=== PATIENT | female | born 1955 | race Two or more races ===

== ENCOUNTER 2022-11-01 05:28 | Day surgery (SDC) | payer OTHER | END 2022-11-01 09:30 | disposition home or self-care (01) | LOC: AMB-ENDOS 05:28 | PROVIDERS: ATTEND Surgery | DX: D12.7 Benign neoplasm of rectosigmoid junction (principal); D37.4 Neoplasm of uncertain behavior of colon; K57.30 Diverticulosis of large intestine without perforation or abscess without bleeding; Z20.822 Contact with and (suspected) exposure to COVID-19; K64.8 Other hemorrhoids; K62.82 Dysplasia of anus; Z88.0 Allergy status to penicillin; Z88.2 Allergy status to sulfonamides ==

== ENCOUNTER 2023-01-02 06:25 | Day surgery (SDC) | payer OTHER ==
[2022-12-30 13:15] LABS: URINE APPEARANCE Clear; URINE BILIRRUBIN Negative (NEGATIVE); URINE COLOR Yellow; URINE LEUKOCYTE Small; URINE NITRATE Negative; URINE PROTEIN Trace (NEGATIVE); URINE UROBILINOGEN 0.2 E.U./dl
[2022-12-30 13:19] LABS: URINE BACTERIA 51.6 uL (0.0-1933); URINE EPITHELIAL CELLS 11.2 uL (0.0-38.8); URINE RBC 10.9 uL (0.0-20.8); URINE WBC 36.1 uL (0.0-23.2)
[2022-12-30 13:34] LABS: ALBUMIN 3.3 gm/dL (3.4-5.0); BILIRUBIN TOTAL 0.39 mg/dL (0.3-1.2); CALCIUM 8.7 mg/dL (8.5-10.1); CREATININE SERUM 0.74 mg/dL (0.55-1.02); GFR 78.28; GLOBULINA 3.6 G/DL (2.4-3.5); POTASSIUM 4.3 mEq/L (3.5-5.1); TOTAL PROTEIN 6.9 gm/dL (6.4-8.2)
[2022-12-30 13:36] LABS: INR 1.04; PARTIAL THROMBOPLASTIN TIME 24.5 SECONDS (22.0-34.0); PROTHROMBIN TIME 10.9 SECONDS (9.0-11.5)
[2022-12-30 13:40] LABS: URINE GLUCOSE 100 MG/DL (NEGATIVE)
[2022-12-30 13:41] LABS: URINE BLOOD TRACES
[~2023-01-02] VITALS: Ht 165.1 cm; Wt 85.3 kg
[~2023-01-02 06:25] MED LIST: ACID REDUCER20 M1 PO; ACTOS30 MG PO; ENALAPRIL MALEA10 MG PO; GLIPIZIDE XL10 MG PO; INDAPAMIDE2.5 MG PO; JANUMET 50-5001 EACH PO; PEPCID AC20 MG PO; ZOCOR20 MG PO
[2023-01-02] MEDS ORDERED: TRAMADOL HCL50 MG PO (13:23)
== END 2023-01-02 15:00 | disposition home or self-care (01) ==
LOC: CIR.AMB 06:25
PROVIDERS: ATTEND Surgery
DX: C20 Malignant neoplasm of rectum (principal); K62.89 Other specified diseases of anus and rectum; I10 Essential (primary) hypertension; Z20.822 Contact with and (suspected) exposure to COVID-19; Z88.0 Allergy status to penicillin; Z88.2 Allergy status to sulfonamides; Z88.1 Allergy status to other antibiotic agents

== ENCOUNTER 2024-05-10 12:09 | Inpatient (IN) | payer OTHER ==
[~2024-05-10] VITALS: Ht 91.4 cm; Wt 92.5 kg
[~2024-05-10 12:09] MED LIST changes: +TRAMADOL HCL50 MG PO
[2024-05-12 08:17] VITALS: BP 155/64; O2SAT 100
[2024-05-12] MEDS ORDERED: FAMOTIDINE/PF 20 MG/2 ML VIAL IV SCH (09:00)
[2024-05-12] MEDS ORDERED: RINGERS SOLUTION,LACTATED 1,000 ML IV SCH (09:00)
[2024-05-12] MEDS ORDERED: ENALAPRIL MALEATE 10 MG TABLET PO SCH (09:00)
[2024-05-12] MEDS ORDERED: FUROsemide 20 MG/2 ML VIAL IV SCH (09:15)
[2024-05-12] MEDS ORDERED: ONDANSETRON HCL 2 MG/ML VIAL IV PRN (14:15)
[2024-05-12 16:00] VITALS: BP 147/68; O2SAT 99
[2024-05-12] MEDS ORDERED: HYOSCYAMINE SULFATE 0.125 MG TAB.SUBL SL SCH (17:00)
[2024-05-13] VITALS: BP 152/73; O2SAT 100
[2024-05-13] MEDS ORDERED: INSULIN LISPRO 1,000 UNIT/10 ML UNITS SUBCUTANEO PRN (10:00)
[2024-05-13] MEDS ORDERED: DEXTROSE 50 % IN WATER 0.5 G/ML DISP.SYRIN IV PRN (10:00)
[2024-05-13 10:13] VITALS: BP 135/69; O2SAT 97
[2024-05-13] MEDS ORDERED: POLYETHYLENE GLYCOL 3350 238 GM POWDER PO NR (13:00)
[2024-05-13] MEDS ORDERED: BISACODYL 5 MG TABLET.EC PO SCH (16:00)
[2024-05-13 16:31] VITALS: BP 151/80; O2SAT 99
[2024-05-13 16:39] VITALS: BP 151/80; O2SAT 99
[2024-05-13] MEDS ORDERED: ENOXAPARIN SODIUM 40 MG/0.4 ML SYRINGE SUBCUTANEO SCH (17:00)
[2024-05-14] VITALS: BP 138/75; O2SAT 100
[2024-05-14 03:40] LABS: HEMATOCRIT 37.9 % (36.0-45.00); HEMOGLOBIN 13.3 g/dL (12.0-15.00); MEAN CELL VOLUME 88.9 fL (80.00-100.00); MEAN CORPUSCULAR HEMOGLOBIN 31.1 pg (27.00-32.0); PLATELET COUNT 151 K/uL (150-450); RED BLOOD COUNT 4.27 M/uL (4.00-6.00); RED CELL DISTRIBUTION WIDTH 17.1 % (11.5-14.5)
[2024-05-14] MEDS ORDERED: BUPIVACAINE HCL/MPF 0.5% 30ML VIAL ONE (08:10)
[2024-05-14] MEDS ORDERED: LIDOCAINE HCL 1%/EPINEPHRINE 20ML VIAL IJ ONE (08:10)
[2024-05-14] MEDS ORDERED: SUGAMMADEX SODIUM 200 MG/2 ML VIAL IV ONE (11:52)
[2024-05-14] MEDS ORDERED: OxyCODONE HCL 5 MG TABLET (ROXICODONE) PO PRN (13:00)
[2024-05-14] MEDS ORDERED: MORPHINE SULFATE 4 MG/ML CARTRIDGE IV PRN (13:00)
[2024-05-14] MEDS ORDERED: MORPHINE SULFATE 4 MG/ML VIAL IV ONE ×2 (13:45→14:15)
[2024-05-14] MEDS ORDERED: LACTOBACILLUS ACIDOPHILUS 1 CAP CAP PO NR (14:00)
[2024-05-14] MEDS ORDERED: INSULIN LISPRO 1,000 UNIT/10 ML UNITS SUBCUTANEO ONE (14:10)
[2024-05-14 14:54] VITALS: BP 127/67; O2SAT 99
[2024-05-14 17:00] VITALS: BP 146/64; O2SAT 100
[2024-05-14] MEDS ORDERED: TAMSULOSIN HCL 0.4 MG CAP PO SCH (17:00)
[2024-05-14] MEDS ORDERED: METRONIDAZOLE/SODIUM CHLORIDE 500 MG/100 ML PIGGYBACK IV SCH (17:00)
[2024-05-14] MEDS ORDERED: GABAPENTIN 300 MG CAPSULE PO SCH (17:00)
[2024-05-14] MEDS ORDERED: ACETAMINOPHEN 500 MG GEL..CAP PO SCH (18:00)
[2024-05-14] MEDS ORDERED: CIPROFLOXACIN IN 5 % DEXTROSE 400 MG/200 ML PIGGYBAG IV SCH (21:00)
[2024-05-15 02:14] VITALS: BP 152/69; O2SAT 97
[2024-05-15 07:54] LABS: ALBUMIN 2.7 gm/dL (3.4-5.0); CALCIUM 8.4 mg/dL (8.5-10.1); CREATININE SERUM 0.87 mg/dL (0.55-1.02); GFR 64.75; HEMATOCRIT 37.5 % (36.0-45.00); HEMOGLOBIN 12.5 g/dL (12.0-15.00); MAGNESIUM 1.9 mg/dL (1.8-2.4); MEAN CELL VOLUME 91.6 fL (80.00-100.00); MEAN CORPUSCULAR HEMOGLOBIN 30.4 pg (27.00-32.0); MEAN CORPUSCULAR HGB CONC 33.2 g/dl (32.0-36.0); PHOSPHOROUS 4.2 mg/dL (2.5-4.9); PLATELET COUNT 144 K/uL (150-450); POTASSIUM 4.22 mEq/L (3.5-5.1); RED BLOOD COUNT 4.09 M/uL (4.00-6.00); RED CELL DISTRIBUTION WIDTH 16.9 % (11.5-14.5)
[2024-05-15] MEDS ORDERED: LACTOBACILLUS ACIDOPHILUS 1 CAP CAP PO SCH (09:00)
[2024-05-15 10:08] VITALS: BP 136/68; O2SAT 97
[2024-05-15 17:00] VITALS: BP 112/61; O2SAT 93
[2024-05-15] MEDS ORDERED: SIMVASTATIN 40 MG TABLET PO SCH (17:00)
[2024-05-15 18:16] VITALS: O2SAT 97
[2024-05-15 20:00] VITALS: BP 115/61; O2SAT 95
[2024-05-16 00:20] VITALS: BP 84/46; O2SAT 97
[2024-05-16 02:19] VITALS: BP 108/58; O2SAT 99
[2024-05-16 08:00] VITALS: BP 119/56; O2SAT 98
[2024-05-16 13:47] VITALS: BP 150/60
[2024-05-16 17:23] VITALS: BP 103/60; O2SAT 98
[2024-05-16] MEDS ORDERED: LOPERAMIDE HCL 2 MG CAPSULE PO STA (21:49)
[2024-05-16] MEDS ORDERED: CHOLESTYRAMINE/ASPARTAME LIGHT 4 G/PKT PACKET PO ONE (22:00)
[2024-05-16 23:56] VITALS: BP 105/58; O2SAT 98
[2024-05-17 06:55] LABS: HEMATOCRIT 34.5 % (36.0-45.00); HEMOGLOBIN 11.4 g/dL (12.0-15.00); MEAN CELL VOLUME 91.7 fL (80.00-100.00); MEAN CORPUSCULAR HEMOGLOBIN 30.4 pg (27.00-32.0); MEAN CORPUSCULAR HGB CONC 33.1 g/dl (32.0-36.0); RED BLOOD COUNT 3.76 M/uL (4.00-6.00); RED CELL DISTRIBUTION WIDTH 16.3 % (11.5-14.5)
[2024-05-17 07:04] LABS: PLATELET COUNT 120 K/uL (150-450)
[2024-05-17 07:50] LABS: ALBUMIN 2.2 gm/dL (3.4-5.0); BILIRUBIN TOTAL 0.47 mg/dL (0.3-1.2); CREATININE SERUM 1.13 mg/dL (0.55-1.02); GFR 47.88; GLOBULINA 3.2 G/DL (2.4-3.5); POTASSIUM 3.93 mEq/L (3.5-5.1); TOTAL PROTEIN 5.4 gm/dL (6.4-8.2)
[2024-05-17 08:00] VITALS: BP 127/69; O2SAT 96
[2024-05-17] MEDS ORDERED: hydrALAZINE HCL 20 MG VIAL IV PRN (08:00)
[2024-05-17] MEDS ORDERED: LOPERAMIDE HCL 2 MG CAPSULE PO SCH (09:00)
[2024-05-17] MEDS ORDERED: 0.9 % SODIUM CHLORIDE 1,000 ML IV SCH (11:30)
[2024-05-17 16:00] VITALS: BP 117/62; O2SAT 100
[2024-05-17 20:56] VITALS: BP 113/62; O2SAT 99
[2024-05-18 00:42] VITALS: BP 111/62; O2SAT 95
[2024-05-18 07:12] LABS: HEMATOCRIT 30.5 % (36.0-45.00); HEMOGLOBIN 10.5 g/dL (12.0-15.00); MEAN CELL VOLUME 90.3 fL (80.00-100.00); MEAN CORPUSCULAR HEMOGLOBIN 31.2 pg (27.00-32.0); MEAN CORPUSCULAR HGB CONC 34.5 g/dl (32.0-36.0); RED BLOOD COUNT 3.38 M/uL (4.00-6.00); RED CELL DISTRIBUTION WIDTH 16.1 % (11.5-14.5)
[2024-05-18 07:15] LABS: PLATELET COUNT 119 K/uL (150-450)
[2024-05-18 07:50] LABS: MANUAL PLATELET COUNT 242
[2024-05-18 08:00] VITALS: BP 120/65; O2SAT 98
[2024-05-18 08:23] LABS: CALCIUM 7.6 mg/dL (8.5-10.1); CREATININE SERUM 0.73 mg/dL (0.55-1.02); GFR 79.28; MAGNESIUM 1.9 mg/dL (1.8-2.4); POTASSIUM 4.17 mEq/L (3.5-5.1)
[2024-05-18 08:40] LABS: PHOSPHOROUS 1.9 mg/dL (2.5-4.9)
[2024-05-18] MEDS ORDERED: POTASSIUM PHOS,M-BASIC-D-BASIC 15 MM in 0.9 % SODIUM CHLORIDE 250 ML IV SCH (13:00)
[2024-05-18 16:00] VITALS: BP 129/70; O2SAT 97
[2024-05-18] MEDS ORDERED: MORPHINE SULFATE 4 MG/ML CARTRIDGE IV PRN (19:15)
[2024-05-19 00:06] VITALS: BP 109/50; O2SAT 98
[2024-05-19] MEDS ORDERED: Cyanocobalamin/Mecobalamin 1 TAB.SL SL SCH (09:00)
[2024-05-19] MEDS ORDERED: IRON FUM,PS/FOLIC ACID/VITC/B3 1 CAP CAPSULE PO SCH (09:00)
[2024-05-19] MEDS ORDERED: INSULIN LISPRO 1,000 UNIT/10 ML UNITS SUBCUTANEO SCH (11:00)
[2024-05-19] MEDS ORDERED: PANTOPRAZOLE SODIUM 40 MG/VIAL VIAL IV STA (12:08)
[2024-05-19 14:33] VITALS: BP 121/63; O2SAT 100
[2024-05-19 16:00] VITALS: BP 142/58; O2SAT 99
[2024-05-20 00:29] VITALS: BP 116/60; O2SAT 96
[2024-05-20] MEDS ORDERED: PANTOPRAZOLE SODIUM 40 MG TABLET.DR PO SCH (06:00)
[2024-05-20 08:00] VITALS: BP 121/65; O2SAT 97
[2024-05-20 12:00] VITALS: BP 120/65; O2SAT 100
[2024-05-20] MEDS ORDERED: HYOSCYAMINE0.125 M1 SL ×2 (12:50)
[2024-05-20] MEDS ORDERED: INTESTINEX680 M1 PO ×2 (12:50)
== END 2024-05-20 16:34 | DRG 330 ==
LOC: SURG 05-12 06:09
PROVIDERS: Internal Medicine Geriatric Medicine; Surgery; ADMIT Surgery; ATTEND Surgery
PROC: 30233N1 Transfusion of Nonautologous Red Blood Cells into Peripheral Vein, Percutaneous Approach (ICD-10-PCS; 2024-05-12)
PROC: 0DBP4ZZ Excision of Rectum, Percutaneous Endoscopic Approach (ICD-10-PCS; 2024-05-14)
PROC: 0DTN4ZZ Resection of Sigmoid Colon, Percutaneous Endoscopic Approach (ICD-10-PCS; 2024-05-14)
PROC: 07BB4ZZ Excision of Mesenteric Lymphatic, Percutaneous Endoscopic Approach (ICD-10-PCS; 2024-05-14)
PROC: 07BC4ZZ Excision of Pelvis Lymphatic, Percutaneous Endoscopic Approach (ICD-10-PCS; 2024-05-14)
PROC: 0DNW3ZZ Release Peritoneum, Percutaneous Approach (ICD-10-PCS; 2024-05-14)
PROC: 0DJD8ZZ Inspection of Lower Intestinal Tract, Via Natural or Artificial Opening Endoscopic (ICD-10-PCS; 2024-05-14)
PROC: 8E0W4CZ Robotic Assisted Procedure of Trunk Region, Percutaneous Endoscopic Approach (ICD-10-PCS; 2024-05-14)
PROC: 0D1B4Z4 Bypass Ileum to Cutaneous, Percutaneous Endoscopic Approach (ICD-10-PCS; principal; 2024-05-14 09:15)
DX: C20 Malignant neoplasm of rectum (principal); N17.9 Acute kidney failure, unspecified; R59.0 Localized enlarged lymph nodes; K62.89 Other specified diseases of anus and rectum; N73.6 Female pelvic peritoneal adhesions (postinfective); N99.4 Postprocedural pelvic peritoneal adhesions; I10 Essential (primary) hypertension; E78.5 Hyperlipidemia, unspecified; E86.0 Dehydration; D63.0 Anemia in neoplastic disease
CPT/HCPCS: 44207; 44213; 38570; 38571; 44187; S2900

== ENCOUNTER → 2024-05-22 | Emergency (ER) | payer OTHER ==
[~2024-05-22] VITALS: Ht 162.6 cm; Wt 51.7 kg
[~2024-05-22] MED LIST changes: +HYOSCYAMINE0.125 M1 SL; +INTESTINEX680 M1 PO
[2024-05-22 10:18] LABS: HEMATOCRIT 34.4 % (36.0-45.00); HEMOGLOBIN 11.8 g/dL (12.0-15.00); MEAN CELL VOLUME 90.2 fL (80.00-100.00); MEAN CORPUSCULAR HGB CONC 34.4 g/dl (32.0-36.0); PLATELET COUNT 249 K/uL (150-450); RED BLOOD COUNT 3.81 M/uL (4.00-6.00); RED CELL DISTRIBUTION WIDTH 16.5 % (11.5-14.5)
[2024-05-22 10:38] LABS: CALCIUM 8.8 mg/dL (8.5-10.1); CREATININE SERUM 0.96 mg/dL (0.55-1.02); GFR 57.8; POTASSIUM 4.02 mEq/L (3.5-5.1)
== END | disposition home or self-care (01) ==
LOC: ER 05:45
PROVIDERS: General Practice
DX: J10.1 Influenza due to other identified influenza virus with other respiratory manifestations (principal); R50.9 Fever, unspecified; Z88.0 Allergy status to penicillin; Z88.2 Allergy status to sulfonamides; I10 Essential (primary) hypertension; M19.90 Unspecified osteoarthritis, unspecified site; E11.9 Type 2 diabetes mellitus without complications; Z79.84 Long term (current) use of oral hypoglycemic drugs; Z20.822 Contact with and (suspected) exposure to COVID-19

== ENCOUNTER 2024-05-25 10:17 | Emergency (ER) | payer OTHER ==
[~2024-05-25] VITALS: Ht 162.6 cm; Wt 108.9 kg
[2024-05-25] MEDS ORDERED: OSELTAMIVIR PHOSPHATE 75 MG CAPSULE PO SCH (10:50)
[2024-05-25] MEDS ORDERED: FAMOtidine 40 MG TABLET PO ONE (11:00)
[2024-05-25] MEDS ORDERED: LEVALBUTEROL HCL 1.25 MG/3 ML SOLUTION IH ONE (11:00)
[2024-05-25] MEDS ORDERED: levoFLOXacin IN DEXTROSE 5 % 500MG/100ML PIGGYBAG IV ONE (11:00)
[2024-05-25 11:31] LABS: HEMATOCRIT 34.3 % (36.0-45.00); HEMOGLOBIN 11.7 g/dL (12.0-15.00); MEAN CELL VOLUME 90.1 fL (80.00-100.00); MEAN CORPUSCULAR HEMOGLOBIN 30.9 pg (27.00-32.0); MEAN CORPUSCULAR HGB CONC 34.2 g/dl (32.0-36.0); PLATELET COUNT 334 K/uL (150-450); RED BLOOD COUNT 3.81 M/uL (4.00-6.00); RED CELL DISTRIBUTION WIDTH 16.4 % (11.5-14.5)
[2024-05-25 12:04] LABS: INR 1.07; PARTIAL THROMBOPLASTIN TIME 30.2 SECONDS (22.0-34.0); PROTHROMBIN TIME 11.6 SECONDS (9.0-11.5)
[2024-05-25 12:06] LABS: ALBUMIN 2.5 gm/dL (3.4-5.0); BILIRUBIN TOTAL 0.41 mg/dL (0.3-1.2); CALCIUM 8.6 mg/dL (8.5-10.1); CREATININE SERUM 0.91 mg/dL (0.55-1.02); GFR 61.47; GLOBULINA 4.7 G/DL (2.4-3.5); POTASSIUM 4.48 mEq/L (3.5-5.1); TOTAL PROTEIN 7.2 gm/dL (6.4-8.2)
[2024-05-25 12:35] LABS: ABG PH 7.424 (7.35-7.45); ABG PO2 77.8 mmHg (80-100); ABG pCO2 36.7 mmHg (35-45); BASE EXCESS -0.5 mmol/l; BICARBONATE 23.5 mmol/l (23-25); SaO2 95.7 %; Tco2 24.6 mmol/l
[2024-05-25 12:58] LABS: allen test SATISFACTORY; o2 21 %; puncture site RADIAL RIGHT
[2024-05-25] MEDS ORDERED: OSEL75CA PO (13:35)
[2024-05-25] MEDS ORDERED: MEDROLPACK PO (13:35)
[2024-05-25] MEDS ORDERED: LEVALBUTER0.63 MG/3 IH (13:35)
== END 2024-05-25 14:20 | disposition home or self-care (01) ==
LOC: ER 10:17
PROVIDERS: General Practice
DX: J10.1 Influenza due to other identified influenza virus with other respiratory manifestations (principal); R05.9 Cough, unspecified; Z20.822 Contact with and (suspected) exposure to COVID-19; I10 Essential (primary) hypertension; E11.9 Type 2 diabetes mellitus without complications; Z79.84 Long term (current) use of oral hypoglycemic drugs; Z88.0 Allergy status to penicillin; Z88.2 Allergy status to sulfonamides
CPT/HCPCS: 36415; 71045; 82803; 96365; 99283; J3490

== ENCOUNTER 2025-01-20 09:37 | Inpatient (IN) | payer OTHER ==
[~2025-01-20] VITALS: Ht 162.6 cm; Wt 93.4 kg
[~2025-01-20 09:37] MED LIST changes: +LEVALBUTER0.63 MG/3 IH; +MEDROLPACK PO; +OSEL75CA PO
[2025-01-20] MEDS ORDERED: JANUVIA50 MG PO (09:52)
[2025-01-20] MEDS ORDERED: TOPROL XL25 M1 PO (09:52)
[2025-01-20] MEDS ORDERED: RAMIPRIL10 MG PO (09:52)
[2025-01-20] MEDS ORDERED: NORVASC2.5 MG PO (09:52)
[2025-01-20 09:55] VITALS: BP 133/72
[2025-01-28] MEDS ORDERED: METRONIDAZOLE/SODIUM CHLORIDE 500 MG/100 ML PIGGYBACK IV ONE ×2 (09:11→16:08)
[2025-01-28] MEDS ORDERED: levoFLOXacin IN DEXTROSE 5 % 5 MG/ML PIGGYBAG IV ONE (09:11)
[2025-01-28] MEDS ORDERED: TAMSULOSIN HCL 0.4 MG CAP PO SCH (12:27)
[2025-01-28] MEDS ORDERED: LACTOBACILLUS ACIDOPHILUS 1 CAP CAP PO SCH (12:27)
[2025-01-28] MEDS ORDERED: MORPHINE SULFATE 4 MG/ML CARTRIDGE IV PRN (12:30)
[2025-01-28] MEDS ORDERED: RINGERS SOLUTION,LACTATED 1,000 ML IV SCH (12:30)
[2025-01-28] MEDS ORDERED: SUGAMMADEX SODIUM 200 MG/2 ML VIAL IV ONE (12:30)
[2025-01-28] MEDS ORDERED: OxyCODONE HCL 5 MG TABLET (ROXICODONE) PO PRN (12:30)
[2025-01-28] MEDS ORDERED: ONDANSETRON HCL 2 MG/ML VIAL IV PRN (12:30)
[2025-01-28] MEDS ORDERED: METRONIDAZOLE/SODIUM CHLORIDE 500 MG/100 ML PIGGYBACK IV SCH ×2 (13:00→17:00)
[2025-01-28] MEDS ORDERED: HYOSCYAMINE SULFATE 0.125 MG TAB.SUBL SL SCH (13:00)
[2025-01-28] MEDS ORDERED: ONDANSETRON HCL 2 MG/ML VIAL ONE (13:15)
[2025-01-28] MEDS ORDERED: HYOSCYAMINE SULFATE 0.125 MG TAB.SUBL ONE (16:08)
[2025-01-28] MEDS ORDERED: GABAPENTIN 300 MG CAPSULE PO ONE (16:08)
[2025-01-28] MEDS ORDERED: ACETAMINOPHEN 500 MG GEL..CAP PO ONE (16:08)
[2025-01-28] MEDS ORDERED: GABAPENTIN 300 MG CAPSULE PO SCH (17:00)
[2025-01-28] MEDS ORDERED: ACETAMINOPHEN 500 MG GEL..CAP PO SCH (18:00)
[2025-01-28 18:03] VITALS: BP 159/70; O2SAT 98
[2025-01-28] MEDS ORDERED: FAMOTIDINE/PF 20 MG/2 ML VIAL IV PUSH SCH (21:00)
[2025-01-29 00:39] VITALS: BP 112/62; O2SAT 98
[2025-01-29 06:48] LABS: BASO % 0.3 % (0.1-1.2); EOS # 0.00 (0.04-0.54); EOS % 0.0 % (0.7-7.0); LYMPH # 1.20 (1.18-3.74); LYMPH % 15.8 % (19.3-53.1); MEAN PLATELET VOLUME 11.50 fl (9.4-12.4); MONO # 0.70 (0.24-0.82); MONO % 9.2 % (4.7-12.5); NEUT # 5.64 (1.56-6.13); NEUT % 74.4 % (34.0-71.1); RED CELL DISTRIBUTION WIDTH 13.1 % (11.6-14.4)
[2025-01-29 08:00] VITALS: BP 114/55; O2SAT 97
[2025-01-29] MEDS ORDERED: CIPROFLOXACIN IN 5 % DEXTROSE 400 MG/200 ML PIGGYBAG IV SCH (09:00)
[2025-01-29] MEDS ORDERED: RAMIPRIL 5 MG CAPSULE PO SCH (09:00)
[2025-01-29] MEDS ORDERED: AMLODIPINE BESYLATE 2.5 MG TABLET PO SCH (09:00)
[2025-01-29] MEDS ORDERED: METOPROLOL SUCCINATE 25 MG TAB.SR.24H PO SCH (09:00)
[2025-01-29 09:35] LABS: BUN CREA RATIO 12.0 (7.0-25.0); CREATININE SERUM 0.66 mg/dL (0.55-1.02); GFR 88.8; GLUCOSE FASTING 100.0 mg/dL (65-100); OSMOLALITY SERUM 285.0 MOSM/KG (275-295)
[2025-01-29] MEDS ORDERED: DEXTROSE 50 % IN WATER 0.5 G/ML DISP.SYRIN IV PRN (11:15)
[2025-01-29] MEDS ORDERED: INSULIN LISPRO 1,000 UNIT/10 ML UNITS SUBCUTANEO PRN (11:15)
[2025-01-29 16:05] VITALS: BP 115/65; O2SAT 98
[2025-01-29] MEDS ORDERED: ENOXAPARIN SODIUM 40 MG/0.4 ML SYRINGE SUBCUTANEO SCH (17:00)
[2025-01-30 00:18] VITALS: BP 113/62; O2SAT 94
[2025-01-30 07:50] LABS: BASO % 0.3 % (0.1-1.2); EOS # 0.01 (0.04-0.54); EOS % 0.1 % (0.7-7.0); LYMPH # 1.23 (1.18-3.74); LYMPH % 16.7 % (19.3-53.1); MEAN PLATELET VOLUME 12.00 fl (9.4-12.4); MONO # 0.84 (0.24-0.82); MONO % 11.4 % (4.7-12.5); NEUT # 5.25 (1.56-6.13); NEUT % 71.1 % (34.0-71.1); RED CELL DISTRIBUTION WIDTH 13.2 % (11.6-14.4)
[2025-01-30 08:00] VITALS: BP 96/58; O2SAT 95
[2025-01-30 08:19] LABS: BUN CREA RATIO 19.0 (7.0-25.0); CREATININE SERUM 0.52 mg/dL (0.55-1.02); GFR 116.92; GLUCOSE FASTING 102.0 mg/dL (65-100); OSMOLALITY SERUM 282.0 MOSM/KG (275-295)
[2025-01-30] MEDS ORDERED: ENOXAPARIN SODIUM 40 MG/0.4 ML SYRINGE SUBCUTANEO SCH (09:00)
[2025-01-30] MEDS ORDERED: POTASSIUM CHLORIDE 20MEQ/100ML H2O PB IV NR (12:00)
[2025-01-30 16:00] VITALS: BP 135/71; O2SAT 95
[2025-01-31 00:18] VITALS: BP 127/61; O2SAT 95
[2025-01-31 08:45] VITALS: BP 133/67; O2SAT 97
[2025-01-31] MEDS ORDERED: POLYETHYLENE GLYCOL 3350 17 GM BLIST.PACK PO SCH ×2 (15:22→17:00)
[2025-01-31 17:14] VITALS: BP 159/71; O2SAT 95
[2025-02-01 00:30] VITALS: BP 139/80; O2SAT 95
[2025-02-01 07:20] LABS: BASO % 0.7 % (0.1-1.2); EOS # 0.29 (0.04-0.54); EOS % 3.9 % (0.7-7.0); LYMPH # 2.06 (1.18-3.74); LYMPH % 28.0 % (19.3-53.1); MEAN PLATELET VOLUME 10.10 fl (9.4-12.4); MONO # 0.83 (0.24-0.82); MONO % 11.3 % (4.7-12.5); NEUT # 4.10 (1.56-6.13); NEUT % 55.8 % (34.0-71.1)
[2025-02-01 07:30] LABS: RED CELL DISTRIBUTION WIDTH 17.8 % (11.6-14.4)
[2025-02-01 08:00] VITALS: BP 148/74; O2SAT 96
[2025-02-01] MEDS ORDERED: ENALAPRILAT DIHYDRATE 1.25 MG/ML VIAL IV STA (12:44)
[2025-02-01] MEDS ORDERED: ENALAPRILAT DIHYDRATE 1.25 MG/ML VIAL IV PRN (13:00)
[2025-02-01] MEDS ORDERED: INTESTINEX680 M1 PO (15:41)
[2025-02-01] MEDS ORDERED: HYOSCYAMINE0.125 M1 SL (15:42)
[2025-02-01] MEDS ORDERED: INTEGRA F CAPS1 EACH PO (15:42)
[2025-02-01 17:04] VITALS: BP 143/74; O2SAT 95
== END 2025-02-01 17:17 | disposition home or self-care (01) | DRG 330 ==
LOC: O/R 01-28 08:00 → SURG 01-28 10:30 → SURH 01-28 14:39
PROVIDERS: Internal Medicine Geriatric Medicine; ADMIT Surgery; ATTEND Surgery
PROC: 0DBB4ZZ Excision of Ileum, Percutaneous Endoscopic Approach (ICD-10-PCS; 2025-01-28)
PROC: 0DNW4ZZ Release Peritoneum, Percutaneous Endoscopic Approach (ICD-10-PCS; 2025-01-28)
PROC: 0DQ84ZZ Repair Small Intestine, Percutaneous Endoscopic Approach (ICD-10-PCS; principal; 2025-01-28 10:30)
PROC: B54BZZZ Ultrasonography of Right Lower Extremity Veins (ICD-10-PCS; 2025-01-31)
PROC: 02HV33Z Insertion of Infusion Device into Superior Vena Cava, Percutaneous Approach (ICD-10-PCS; 2025-01-31)
PROC: B548ZZA Ultrasonography of Superior Vena Cava, Guidance (ICD-10-PCS; 2025-01-31)
PROC: 30243N1 Transfusion of Nonautologous Red Blood Cells into Central Vein, Percutaneous Approach (ICD-10-PCS; 2025-01-31)
PROC: 5A0935A Assistance with Respiratory Ventilation, Less than 24 Consecutive Hours, High Flow/Velocity Cannula (ICD-10-PCS; 2025-01-31)
DX: Z43.2 Encounter for attention to ileostomy (principal); C20 Malignant neoplasm of rectum; R59.0 Localized enlarged lymph nodes; K62.89 Other specified diseases of anus and rectum; K66.0 Peritoneal adhesions (postprocedural) (postinfection); D64.89 Other specified anemias; R09.02 Hypoxemia; M79.661 Pain in right lower leg; M13.851 Other specified arthritis, right hip; I10 Essential (primary) hypertension; E11.9 Type 2 diabetes mellitus without complications; Z86.0100 Personal history of colon polyps, unspecified; Z88.0 Allergy status to penicillin; Z88.2 Allergy status to sulfonamides; Z79.84 Long term (current) use of oral hypoglycemic drugs